=== PATIENT | female | born 1935 | race Caucasian/White ===

== ENCOUNTER → 2020-05-23 12:25 | Outpatient (CLI) | payer OTHER, SELFPAY ==
[2020-05-23 12:43] VITALS: BP 139/59; PULSE 66; RESP 16; TEMP 36.9; O2SAT 95
--- NOTE | 2020-05-23 12:56 | PDOC.PAIN ---
Pain Clinic Procedure Note Procedure Note Procedure Note: PROCEDURE NOTE Transforaminal Epidural Steroid Injection with Fluoroscopic Guidance at right L3 Chief Complaint: right hip and leg pain. Pre-operative diagnosis: lumbar radiculopathy Post-operative diagnosis: same as above CHUCK LOPEZ has [facility]bar Transforaminal Epidural Steroid Injection right L3 TFESI COMMENTS: Referring provider: Ms Tonya Woo APRN Allergies: reviewed Follow up plan: patient was evaluated by Ms Woo in clinic. patient has a prior lumbar TFESI done at [facility] which provided short lived pain relief. 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 Today's injection will serve both diagnostic and possibly therapeutic purposes. CHUCK LOPEZ was greeted by the nurse who verified patients name and . Patient was then taken to the fluoroscopy suite. CHUCK was interviewed and the medical record reviewed. There were no medical, pharmacologic, radiographic or other structural contraindications to attempting fluoroscopically guided transforaminal lumbar epidural steroid injection. The risks, benefits, and potential side effects were reviewed with the patient. Risk include, but not limited to, post dural puncture, headache, infection, nerve injury, allergic reaction, possible increase in symptoms over the ensuing 24 to 48 hours, and paralysis. The patient appeared to understand, questions were answered and the patient agreed to proceed. Once I obtained informed verbal consent, the printed consent form was signed by the patient and myself. Standard time-out procedure was performed. TECHNIQUE: After informed written consent was obtained the patient was placed in the prone position. The lumbar spine was prepped with chloraprep and draped. Sterile technique was observed during the entire procedure ( cap, gloves, and mask were worn). Vitals signs were monitored throughout the procedure. The right side was marked with a radioopaque marker. The skin and subcutaneous structures were anesthetized with lidocaine 1% to a total volume of 3 ML at each level. Under fluoroscopic guidance, in ipsilateral oblique view, co-axial approach, 22 gauge 5'' spinal needle(s) were advanced to the base of the L3. pedicle(s). The needle(s) were advanced to the superio-posterior aspect of the neural foramen under lateral view. Oblique and AP views were rechecked. Under AP view Omnipaque 240 1.5 cc's was injected while visualized with fluoroscopy. There was no evidence of intravascular uptake, the epidural space was delineated. 15 mg Dexamethasone was injected after negative aspiration, at each level, followed by lidocaine 1% 1.0-ML at each level. (49 cc of Omnipaque was wasted) Outcome: The patient tolerated the procedure well and had stable vital signs. The patient noted after getting up after the procedure that their right leg pain was at a mild out of 10 level. Follow up plans and appointments were discussed with CHUCK . 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 The patient received written instructions as documented in nursing records. Disposition: CHUCK was discharged from the procedure suite without new neurological complaints. Follow-up: If today's injection fails to achieve significant right hip pain relief, would recommend follow up visit with Ms Woo and r/o superimposed right hip OA as major pain generator. I personally performed the entire procedure. Evelia Silveira MD ABPN-subspecialty board certification in Pain Medicine Attending Physician-Pain Management
[2020-05-23] MEDS: Dexamethasone Sod. Phos./Pres-Free 10 MG/ML VIAL IJ (13:17)
[2020-05-23] MEDS: Omnipaque 240 MG/ML 50 ML BTL IJ (13:19)
--- NOTE | 2020-05-23 13:20 | DI.RAD_ITS ---
EXAM: XR PAIN CLINIC LUMBAR SP 2V CLINICAL HISTORY: Lumbar Radiculopathy, RT TRANSFORAMINAL STEROID INJECTION TECHNIQUE: Fluoroscopy was provided for the referring physician for guidance with performing injecti on procedure. COMPARISON: No exams were available for comparison FINDINGS: Please see procedure note for details. FLUORO TIME: 33 seconds RADIATION DOSE DELIVERED:
[2020-05-23 13:32] VITALS: BP 145/92; PULSE 70; RESP 19; O2SAT 94
== END ==
PROVIDERS: PCP Nurse Practitioner; Visit Provider Internal Medicine
DX: M54.16 Radiculopathy, lumbar region (principal)
CPT/HCPCS: 64483; 72100; Q9967

== ENCOUNTER → 2024-05-05 13:56 | Outpatient (BNVA) | payer MEDICARE, SELFPAY | PROVIDERS: PCP Nurse Practitioner; Referring Provider Nurse Practitioner; Visit Provider Physician Assistant Surgical | DX: J44.9 Chronic obstructive pulmonary disease, unspecified (principal); R06.00 Dyspnea, unspecified | CPT/HCPCS: 99205 ==

== ENCOUNTER 2024-05-06 01:15 | Outpatient (CLI) | payer MEDICARE, SELFPAY ==
[2024-05-06] MEDS: Inhaler, Assist Device 1 EACH MC (16:37)
[2024-05-06] MEDS: Levalbuterol HFA 15 GM INH 4 PUFF IH (16:37)
--- NOTE | 2024-05-10 11:31 | PFT_ITS ---
Date of service: 05/06/24 Time of Service: 15:20 Pulmonary Function Test Result Requesting Provider Miky Saldaña Indications: Chronic bronchitis Interpretation Spirometry: Normal Lung Volumes: Normal Diffusion Capacity: Moderate decrease in diffusion Impression Normal spirometry with no reversibility after albuterol. Normal lung volumes with no air trapping. Moderate decrease in diffusion Flow-volume curve suggesting perhaps early obstruction. Impression Number spirometry lung volumes and a decrease in diffusion which could be consistent with early COPD, ILD, pulmonary vascular disease. Clinical correla tion is advised. Clinical Correlation therefore is recommended.
== END 2024-05-06 01:16 | disposition home or self-care (01) ==
LOC: RT 01:15
PROVIDERS: PCP Nurse Practitioner; Visit Provider Family Medicine
DX: J44.9 Chronic obstructive pulmonary disease, unspecified; R06.00 Dyspnea, unspecified
CPT/HCPCS: 00123; 94060; 94726; 94729

== ENCOUNTER 2024-06-04 00:34 | Outpatient (CLI) | payer MEDICARE, SELFPAY ==
--- NOTE | 2024-06-04 11:04 | DI.CT_ITS ---
Exam(s) CT CHEST WO EXAM: CT CHEST WO CLINICAL HISTORY: dyspnea,COPD,J44.9. TECHNIQUE: Multi planar reconstructions were performed. CONTRAST MATERIAL: None COMPARISON: CR XR CHEST 1 VIEW from 07/12/2019 CR XR CHEST 1 VIEW from 10/24/2022 CR XR Chest 2 Views from 04/30/2024 FINDINGS: CHEST: LUNGS: There is mild infiltrate or scarring in the anterior segment of the right upper lobe correspon ding to sub apical findings on outside chest x-ray of 04/30/2024. No other significant focal finding s in the right lung with the exception of some minimal increased markings in the medial basal segment of the right lower lobe. No pleural effusion. In the opposite-left lung there are mild benign-appearing increased markings in the anterior aspect o f the superior lingular segment. No ominous left lung nodules. No pleural effusions. There are no significant focal findings in the trachea and mainstem bronchi. There is no bronchiecta sis. MEDIASTINUM: There is no obvious hilar nor mediastinal adenopathy. Visualized thyroid unremarkable.Th ere is a moderate size hiatal hernia. CARDIAC: Heart size is normal. There is no pericardial effusion.Caliber of the thoracic aorta is wit hin normal limits. VISUALIZED UPPER ABDOMEN:No adrenal masses. No splenomegaly. Hiatal hernia. OSSEOUS: No significant osseous lesions.. IMPRESSION: 1. There is mild infiltrate or scarring in the anterior segment of the right upper lobe which corresp onds to density on recent outside chest x-ray of 04/30/2024. There also benign-appearing increased m arkings in the superior lingular segment of the opposite-left lung. There are no pleural effusions. No obvious intrathoracic adenopathy. Appropriate imaging follow-up to resolution is recommended 2. Moderate size hiatal hernia noted RADIATION DOSE DELIVERED: Total DLP DATA REPOSITORY: All CT scans at this facility are submitted to the National Radiology Data Registry (NRDR) Dose Index Registry (DIR) with the [employer] (ACR). RADIATION OPTIMIZATION: All CT scans at this facility use at least one of these dose optimization te chniques: automated exposure control; mA and/or kV adjustment per patient size (includes targeted exa ms where dose is matched to clinical indication); or iterative reconstruction.
== END 2024-06-04 00:54 ==
LOC: DI 00:34
PROVIDERS: PCP Nurse Practitioner; Visit Provider Physician Assistant Surgical
DX: J44.89 Other specified chronic obstructive pulmonary disease (principal)
CPT/HCPCS: 71250

== ENCOUNTER → 2024-07-08 11:00 | Outpatient (BNVA) | payer MEDICARE, SELFPAY | PROVIDERS: PCP Nurse Practitioner; Referring Provider Nurse Practitioner; Visit Provider Internal Medicine ==

== ENCOUNTER 2024-07-08 13:21 | Outpatient (CLI) | payer MEDICARE, SELFPAY ==
--- NOTE | 2024-07-08 12:45 | DI.RAD_ITS ---
Exam(s) XR CHEST 2V PA LATERAL EXAM: XR CHEST 2V PA LATERAL CLINICAL HISTORY: J18.9 follow up pneumonia; pre-op evaluation, cough J40 BRONCHITIS TECHNIQUE: 2D digital imaging was performed. Two views. COMPARISON: CR XR Chest 2 Views from 04/30/[address] CHEST WO from 06/04/2024 FINDINGS: HEART: Enlarged, unchanged. Aorta: Mildly tortuous. PULMONARY VASCULATURE: Normal. MEDIASTINUM: Unremarkable. LUNGS: Clear. PLEURAL SPACE: No pleural effusion or pneumothorax. BONE:Unremarkable for age. SOFT TISSUES: Unremarkable. IMPRESSION: No acute abnormality. DATA REPOSITORY: RADIATION DOSE DELIVERED:
== END 2024-07-08 13:41 ==
LOC: DI 13:21
PROVIDERS: PCP Nurse Practitioner; Visit Provider Internal Medicine
DX: J40 Bronchitis, not specified as acute or chronic (principal); J18.9 Pneumonia, unspecified organism
CPT/HCPCS: 94618; 99215; 71046

== ENCOUNTER 2025-07-11 00:40 | Outpatient (CLI) | payer MEDICARE, SELFPAY ==
[2025-07-11] MEDS: Barium Sulfate 2% W/V-Creamy Vanilla Smoothie 450 ML BTL PO (11:49)
[2025-07-11] MEDS: Barium Sulfate 2% W/V-Berry Smoothie 450 ML BTL PO (11:49)
[2025-07-11 12:32] LABS: Abs Immature Grans 0.05 10^3/uL (0.0-0.06); HCT 35.4 % (36.0-46.0); HGB 11.0 g/dL (11.2-15.7); Immature Grans % 0.5 %; MCH 25.6 pg (27.0-33.0); MCHC 31.1 % (32.0-36.0); MCV 82 fL (80-95); MPV 9.5 fL (8.0-11.0); Platelet Count 377 10^3/uL (130-400); RBC 4.30 10^6/uL (3.93-5.22); RDW 17.1 % (11.7-14.6); RDW-SD 51.4 fL; WBC 10.92 10^3/uL (4.4-10.8)
[2025-07-11 13:07] LABS: ALT 12 U/L (14-59); AST 18 U/L (15-37); Albumin 4.0 g/dL (3.4-5.0); Alkaline Phosphatase 123 U/L (46-116); Anion Gap 9.0 mmol/L (3-11); BUN 23 mg/dL (7-18); Bilirubin, Total 0.2 mg/dL (0.2-1.0); CO2 27.0 mmol/L (21.0-32.0); Calcium 9.6 mg/dL (8.5-10.1); Chloride 101 mmol/L (98-107); Estimated GFR 30.83 (mL/min/1.73m2); Glucose 195 mg/dL (74-106); Potassium 4.9 mmol/L (3.5-5.1); Sodium 137 mmol/L (136-145); TSH 3.70 uIU/mL (0.36-3.74); Total Protein 8.3 g/dL (6.4-8.2)
[2025-07-11] MEDS: Normal Saline - Diluent 50 ML VIAL IJ (14:11)
[2025-07-11] MEDS: Omnipaque 350 MG/ML 500 ML BTL-Imaging package IJ (14:11)
--- NOTE | 2025-07-11 14:20 | DI.CT_ITS ---
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 TECHNIQUE: Imaging Protocol: Axial computed tomography images with coronal and sagittal reformatted images were created and reviewed CONTRAST MATERIAL: Intravenous: Omnipaque 350 Contrast volume:74 mL Oral: Yes. Oral contrast was also administered for bowel opacification. COMPARISON: CT CT CHEST ABDOMEN PELVIS W CONTRAST (GENERIC) from 02/28/2025 FINDINGS: CHEST: LUNGS: The concerning noncalcified and non cavitated nodular density in the right upper lobe has increased in size when compared to 02/28/2025, presently measuring 1.7 cm wide by 1.2 cm maximum AP. Suspicious for neoplasm. There are no other significant focal pulmonary infiltrates nor nodules and there are no pleural effusions. No significant findings in the trachea and mainstem bronchi. PULMONARY ARTERIES: No intraluminal filling defects to suggest the presence of acute pulmonary emboli. MEDIASTINUM: There is no hilar nor mediastinal adenopathy. No subcarinal adenopathy. Moderate size hiatal hernia noted. Visualized thyroid appears unremarkable CARDIAC: Heart size is normal. There is no pericardial effusion.Caliber of the thoracic aorta is within normal limits. No dissection. OSSEOUS: No fractures. No significant osseous lesions in the chest. ABDOMEN: There is no ascites. LIVER: There are no focal hepatic lesions nor dilatation of intrahepatic ducts. GALLBLADDER/BILIARY: No obvious gallbladder pathology. CBD is not dilated. PANCREAS: No evidence of pancreatic mass nor dilatation of the pancreatic duct. SPLEEN: Spleen is not enlarged. There are no intrasplenic lesions. Splenic and portal veins are patent. ADRENALS: There are no significant adrenal masses. KIDNEYS: Left kidney unremarkable. There is a double-pigtail stent on the right side which extends from the right renal pelvis down into the urinary bladder and extends across the midline of the bladder with the lower pigtail in the left side of the urinary bladder.. There is a small benign cyst in the right kidney which measures 1 cm and does not require further workup. There are no solid masses in the kidneys nor calculi nor hydronephrosis. No hydroureter. No obvious masses nor radiopaque calculi seen in the urinary bladder. No blood clots within the urinary bladder and there is no gas within the urinary bladder. ABDOMINAL AORTA: Calcified-atherosclerotic but not enlarged. Iliac arteries also calcified but not enlarged. LYMPH NODES: There is no retroperitoneal nor paraaortic adenopathy. ABDOMINAL WALL: No evidence of significant anterior abdominal wall nor inguinal hernia. GI: There is no evidence of bowel obstruction.No free air. No abscess. PELVIS: LYMPH NODES: There is no intrapelvic nor inguinal adenopathy. GI: No evidence of appendicitis.There diverticuli throughout the sigmoid without evidence of obvious acute diverticulitis. URINARY BLADDER: Stent in place. No other findings. REPRODUCTIVE: Uterus is atrophic or surgically absent. There are no abnormal adnexal masses and no free fluid in the pelvis. OSSEOUS: There is a nondisplaced fracture of the right transverse process of L3 which was not evident on the CT scan of 02/28/2025.. There is also subtle nondisplaced fracture of the right transverse process of L4, not previously present. There are no other fractures. There is mild degenerative ante rolisthesis L4 upon L5 multilevel disc space narrowing in the lumbar spine, most prominent at L3-4 and L2-3 levels. There are no lytic nor blastic osseous lesions in the lumbar vertebrae. Right hip prosthesis noted IMPRESSION: 1. Compared to the prior outside CT scan of 02/28/2025 ([facility]) the size of the right upper lobe nodule has significantly increased, presently measuring 17 mm wide by 12 mm AP. This noncalcified and non cavitated nodule is mildly spiculated. First consideration is for increasing size neoplasm. No other pulmonary nodules nor pleural effusions nor intrathoracic adenopathy. 2. There is a moderate size retrocardiac hiatal hernia again noted. 3. Stable position of the double pigtail right ureteral stent which extends from the renal pelvis to the urinary bladder. The distal aspect of the stent is again noted to extend across the midline of the bladder to the left side of the urinary bladder. Although the bladder is partially obscured by beam hardening artifact from right hip prosthesis, there are no obvious masses nor clots nor radiopaque calculi in the urinary bladder lumen and no obvious diverticuli. 4. Nondisplaced fracture of the right transverse process of L3 vertebral body and an extremely subtle nondisplaced fracture of the right transverse process of L4 vertebral body. These fractures were not evident on the prior CT scan of February 2025. A right hip prosthesis is again noted. There are advanced degenerative changes in the left hip joint. 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 RADIATION OPTIMIZATION: All CT scans at this facility use at least one of these dose optimization techniques: automated exposure control; mA and/or kV adjustment per patient size (includes targeted exams where dose is matched to clinical indication); or iterative reconstruction.
== END 2025-07-11 01:00 ==
PROVIDERS: PCP Nurse Practitioner; Visit Provider Nurse Practitioner
DX: S32.038A Other fracture of third lumbar vertebra, initial encounter for closed fracture (principal); X58.XXXA Exposure to other specified factors, initial encounter; R94.6 Abnormal results of thyroid function studies; C79.10 Secondary malignant neoplasm of unspecified urinary organs; J18.9 Pneumonia, unspecified organism
CPT/HCPCS: 74177; 80053; 71260; 84439; 84443; 85025